=== PATIENT | male | born 1955 | race Caucasian/White ===

== ENCOUNTER 2025-02-25 16:22 | Inpatient (IN) ==
[2025-02-25] MEDS: ALBUT/IPRATROP 3MG/0.5MG NEB 3 ML VIAL ONE (16:39)
[2025-02-25 16:45] LABS: Base Excess VBG 40.4 mEq/L; HCO3 VBG 70 mmol/L; Oxygen Saturation VBG < 60.0 %; PCO2 VBG 99 mmHg (38-50); PO2 VBG 32 mmHg; pH VBG 7.46 (7.36-7.41)
[2025-02-25 16:47] LABS: Hemoglobin 9.4 g/dl (14.0-18.0); Mean Corpuscular Hemoglobin 22.3 pg (25.0-34.0); Mean Corpuscular Hgb Conc 27.6 g/dL (32.0-36.0); Mean Corpuscular Volume 80.6 fL (80.0-100.0); Mean Platelet Volume 10.3 fL (9.4-12.4); Nucleated RBC # (auto) 0.02 K/uL (0.00-0.12); Nucleated RBC % (auto) 0.1 %; Platelet Count 289 K/uL (130-400); RDW Coefficient of Variation 22.2 % (11.5-14.5); RDW Standard Deviation 64.3 fL (36.4-46.3); Red Blood Count 4.22 M/uL (4.70-6.10); White Blood Count 24.05 K/ul (4.8-10.8)
--- NOTE | 2025-02-25 16:51 | XRay Report ---
EXAM: Portable AP chest radiograph TECHNIQUE: AP portable radiograph of the chest was obtained. INDICATION: Shortness of breath Comparison: None FINDINGS: LINES and TUBES: None CARDIOVASCULAR: Cardiac silhouette is enlarged in size. LUNGS/PLEURA: No focal consolidation identified. Mild pulmonary vascular congestion and chronic interstitial lung changes. Hyperinflated lungs. Small pleural fluids may be present. Bibasilar atelectatic changes. No discernible pneumothorax. OSSEOUS/OTHER: No displaced acute osseous process identified. IMPRESSION: Mild congestive changes of the cardiovascular system superimposed on chronic interstitial lung changes. Electronically signed by James Marks 02-25-2025 4:51 PM
[2025-02-25] MEDS: RAPID SEQUENCE INDUCTION BAG ONE (16:54)
[2025-02-25] MEDS: KETAMINE HCL 10MG/ML SYR ONE (16:54)
[2025-02-25 17:27] LABS: Alanine Aminotransferase 19 U/L (7-52); Albumin Globulin Ratio 1.3 (0.9-2); Albumin Level 3.8 gm/dl (3.4-5.0); Alkaline Phosphatase 65 U/L (34-104); Aspartate Aminotransferase 25 U/L (13-39); BUN Creatinine Ratio 25.6 (10-20); Bilirubin,Total 0.7 mg/dl (0.2-1.0); Blood Urea Nitrogen 51 mg/dl (6-23); Calcium 9.9 mg/dl (8.6-10.3); Carbon Dioxide > 45 mmol/L (21-32); Chloride 67 mmol/L (98-107); Globulin 2.9 gm/dl (2.5-4.0); Glucose 67 mg/dl (70-99(Fasting)); Potassium 3.4 mmol/L (3.5-5.1); Sodium 133 mmol/L (136-145); Total Protein 6.7 gm/dl (6.0-8.3); Troponin I High Sensitivity 78.4 pg/ml (0-20)
[2025-02-25] MEDS: OPTIRAY 320 125ml IV ONE (17:48)
--- NOTE | 2025-02-25 17:51 | Emergency Department Note ---
Impression & Plan COPD exacerbation, Elevated troponin ED Provider Note NAME: ARAMIS MCGINNIS AGE: 69 SEX: M : 1955 ARRIVES VIA: Ambulance INFORMANT: Patient, ED PROVIDER(S): Gabrielal Rosario MD CHIEF COMPLAINT: Respiratory distress HPI: This is 69-year-old male with history of CHF, COPD, diabetes presenting for respiratory distress. Patient has an outpatient appointment today and was found to be hypoxic to 67% on room air. EMS was then alerted. States that he is a patient refused CPAP in around. Otherwise patient is alert, oriented and continues to decline CPAP/BiPAP currently. His oxygen saturation is around 98% on 15 L nonrebreather. Will transition to nasal cannula, 5 L. Patient declines any current chest pain. He states he does inhalers every 4 hours. Otherwise his legs have been chronically swollen. Reports no fevers, cough, congestion. ROS: See above HPI for pertinent positives & negatives. A total of 10 systems reviewed and were otherwise negative. PAST MEDICAL HISTORY: See Below PAST SURGICAL HISTORY: See Below FAMILY HISTORY: See Below SOCIAL HISTORY: See Below HOME MEDICATIONS: See Below ALLERGIES: See Below VITALS: See Below PHYSICAL EXAMINATION: General: Chronically unwell appearing, tachypneic Head: Normocephalic and atraumatic Eyes: Normal inspection, extraocular muscles intact Ear, nose, throat: Normal external exam Neck: Normal range of motion Respiratory: Diminished in the upper lobes with crackles at the bases bilaterally Cardiovascular: Regular rate/rhythm, no murmur GI: soft, nontender, no guarding or rebound Extremities: Chronic venous skin changes with 2+ pitting edema Neuro: The patient awake and alert, appropriately conversive, no focal deficits, symmetric faces Skin: Warm, dry, and intact MEDICAL DECISION MAKING: This is a 69-year-old male presenting for respiratory distress. Patient currently speaking in full sentences. Will continue on nasal cannula at this time switching from nonrebreather. Will give albuterol as patient has poor air movement at this time. - Chest Xray independently interpreted by me showing no pneumothorax, focal opacity, or pleural effusions. Does reveal signs of congestive changes. - Th blood work reveals leukocytosis 24.05, consider infection versus recent steroid use (was on prednisone last week). No signs of pneumonia on x-ray - Advised her as needed 7.4. VBG is 7.46/99. - Chloride 67 with a CO2 of over 45, creatinine 1.99. Troponin is elevated at 78.4. - Will do CTA to rule out PE due to elevated troponin and hypoxia. -No signs of PE, there is right-sided cardiac chamber enlargement due to pulmonary hypertension -Patient will be admitted for COPD exacerbation/pulmonary hypertension Differential diagnosis: COPD, PE, CHF, dissection Independent History obtained from: Diagnostics interpreted by me: ECG: ECG independently interpreted by me with normal sinus rhythm, rate of 94, right axis deviation, normal PA, normal QRS, normal QTc, no ST segment elevations consistent with STEMI criteria Cardiac Monitoring: An order was placed for continuous cardiac monitoring. The monitor shows a rate of 101 with sinus rhythm. Critical Care Note: I have personally spent 45 minutes of critical care time in the direct management of this patient. This includes bedside care, interpretation of diagnostic studies, and testing, discussion with consultants, patient, and family members, and other required patient management activities. This 45 minutes is in excess of all separately billable procedures. Past Med/Surg History Problem List (Updated 02/27/25 @ 01:34 by Gabriella Rosario MD) Elevated troponin (Acute) COPD exacerbation (Acute) Obstructive sleep apnea Chronic hypercapnic respiratory failure Left leg cellulitis Acute and chronic respiratory failure Chronic hypoxic respiratory failure CKD (chronic kidney disease) Type 2 diabetes mellitus with hyperglycemia, with long-term current use of insulin Hypertrophic toenail Arthritis of right hand Lower extremity edema Asthma COPD (chronic obstructive pulmonary disease) CHF (congestive heart failure) Surgical History S/P cholecystectomy Status post hernia repair S/P lumbar spinal fusion Status post amputation Family History (Updated 02/06/25 @ 09:01 by Adri Ratliff LPN) Father Myocardial infarction Grandfather (Paternal) Myocardial infarction Denies family history of Ovarian cancer Prostate cancer Breast cancer Colonic polyp Social History Smoking Status: Current every day smoker Tobacco Type: Cigarettes Age Started Using Tobacco: 5; Age Quit Using Tobacco: 69; packs per day: 1.0; Second Hand Exposure: Yes; Do You Dip or Chew Tobacco: No; Tobacco Cessation Education Requested by Patient: No Hx Alcohol Use: No Hx Substance Use: No Preferred Language: Hungarian Communication Ability: Effective Visual Impairment: No Limitations Hearing Ability: Hard of Hearing Production Lead Required: No Beliefs That Will Affect Care: None marital status: Current Living Situation: Spouse current occupational status: retired How many Children do You have: 3 Feels Safe at Home: Yes Safety Concerns: Feels Safe At This Time Childhood Exposure to Second-Hand Smoke: No Diet: regular caffeine: Yes during the past year weight has: remained stable Dental Care, Regularly: No Physical Activity Frequency: Does not Exercise Seatbelt Use: never Sunscreen Use: No Assistive Devices: Cane and Oxygen - Continuous Allergies Allergies Allergy/AdvReac Type Severity Reaction Status Date / Time tramadol Allergy Severe Hallucinati Verified 02/25/25 14:44 ng Home Meds Home Medications Medication Instructions Recorded Confirmed albuterol sulfate 90 mcg/actuation 2 puff inhalation .every 4 hours 02/06/25 02/25/25 aerosol inhaler PRN Shortness Of Breath Or Wheezing aspirin 81 mg tablet,delayed 81 mg PO DAILY 02/06/25 02/25/25 release (Adult Low Dose Aspirin) cholecalciferol (vitamin D3) 25 25 mcg PO DAILY 02/06/25 02/25/25 mcg (1,000 unit) capsule insulin glargine 100 unit/mL (3 30 unit subcut DAILY 02/06/25 02/25/25 mL) subcutaneous pen (Lantus Solostar U-100 Insulin) metformin 1,000 mg tablet 1,000 mg PO BID 02/06/25 02/25/25 metolazone 5 mg tablet 5 mg PO DAILY PRN Muscle Spasm 02/06/25 02/25/25 potassium chloride 20 mEq 20 meq PO DAILY 02/06/25 02/25/25 tablet,extended release rosuvastatin 20 mg tablet 20 mg PO DAILY 02/06/25 02/25/25 torsemide 20 mg tablet 40 mg PO DAILY 02/06/25 02/25/25 Previous Rx's Medication Instructions Recorded blood-glucose sensor (FreeStyle #2 ea 02/06/25 Sarthak 3 Plus Sensor device) blood-glucose,pharmaceutical sales specialist,cont #1 ea 02/06/25 (FreeStyle Sarthak 3 [place]) Portable Oxygen #1 ea 02/20/25 Results & Data (ED) Vital Signs Vital Signs - 24 hr 02/25/25 16:14 02/25/25 16:30 02/25/25 16:30 Temperature 36.9 C Temperature Source Oral Pulse Rate 95 H Pulse Rate [Apical] Pulse Rate from SpO2 Sensor Respiratory Rate 30 H Respiratory Effort / Characteristics Respiratory Depth Shallow Blood Pressure 109/64 126/65 126/65 Blood Pressure Mean 79 81 81 Pulse Oximetry 100 Oxygen Delivery Method Non-rebreather Oxygen Flow Rate 15 Sepsis Recent Fever Within 48 Hours No Sepsis New/Unexplained Change in Mental Status N/A Sepsis Action Taken by Nursing No Action Required Pulse Oximetry Post Tiitration 02/25/25 16:30 02/25/25 16:33 02/25/25 16:36 Temperature Temperature Source Pulse Rate 96 H 93 H Pulse Rate [Apical] Pulse Rate from SpO2 Sensor Respiratory Rate 29 H 29 H Respiratory Effort / Characteristics Respiratory Depth Blood Pressure Blood Pressure Mean Pulse Oximetry 99 99 100 Oxygen Delivery Method Non-rebreather Oxygen Flow Rate 15 Sepsis Recent Fever Within 48 Hours Sepsis New/Unexplained Change in Mental Status Sepsis Action Taken by Nursing Pulse Oximetry Post Tiitration 02/25/25 16:36 02/25/25 16:38 02/25/25 16:38 Temperature Temperature Source Pulse Rate Pulse Rate [Apical] 94 H Pulse Rate from SpO2 Sensor Respiratory Rate 22 Respiratory Effort / Characteristics Spontaneous Respiratory Depth Blood Pressure 118/61 Blood Pressure Mean 87 Pulse Oximetry 100 Oxygen Delivery Method Nasal Cannula Nasal Cannula Oxygen Flow Rate 5 5 Sepsis Recent Fever Within 48 Hours Sepsis New/Unexplained Change in Mental Status Sepsis Action Taken by Nursing Pulse Oximetry Post Tiitration 98 02/25/25 16:38 02/25/25 16:39 02/25/25 16:41 Temperature Temperature Source Pulse Rate 88 Pulse Rate [Apical] Pulse Rate from SpO2 Sensor 87 Respiratory Rate 27 H Respiratory Effort / Characteristics Respiratory Depth Blood Pressure 118/61 118/61 Blood Pressure Mean 87 80 Pulse Oximetry 99 100 Oxygen Delivery Method Aerosol Mask Nasal Cannula Nebulizer Oxygen Flow Rate 8 5 Sepsis Recent Fever Within 48 Hours Sepsis New/Unexplained Change in Mental Status Sepsis Action Taken by Nursing Pulse Oximetry Post Tiitration 02/25/25 17:04 02/25/25 17:15 02/25/25 17:51 Temperature Temperature Source Pulse Rate 93 H 89 68 Pulse Rate [Apical] Pulse Rate from SpO2 Sensor 92 H Respiratory Rate 21 22 Respiratory Effort / Characteristics Respiratory Depth Blood Pressure 113/56 L 112/60 Blood Pressure Mean 75 77 Pulse Oximetry 99 92 Oxygen Delivery Method Aerosol Mask Nasal Cannula Oxygen Flow Rate 8 5 Sepsis Recent Fever Within 48 Hours Sepsis New/Unexplained Change in Mental Status Sepsis Action Taken by Nursing Pulse Oximetry Post Tiitration 02/25/25 18:00 02/25/25 18:30 Temperature Temperature Source Pulse Rate 104 H 90 Pulse Rate [Apical] Pulse Rate from SpO2 Sensor 94 H 78 Respiratory Rate 21 24 Respiratory Effort / Characteristics Respiratory Depth Blood Pressure 96/48 L 96/65 L Blood Pressure Mean 64 75 Pulse Oximetry 90 94 Oxygen Delivery Method Nasal Cannula Nasal Cannula Oxygen Flow Rate 5 5 Sepsis Recent Fever Within 48 Hours Sepsis New/Unexplained Change in Mental Status Sepsis Action Taken by Nursing Pulse Oximetry Post Tiitration Laboratory Data 02/26/25 06:15 02/26/25 06:15 Lab Results 02/25/25 02/25/25 Range/Units 16:32 16:38 WBC 24.05 H (4.8-10.8) K/ul RBC 4.22 L (4.70-6.10) M/uL Hgb 9.4 L (14.0-18.0) g/dl POC Hgb 11.9 L (14.0-18.0) g/dl Hct 34.0 L (42.0-52.0) % POC Hct 35 L (42-52) % MCV 80.6 (80.0-100.0) fL MCH 22.3 L (25.0-34.0) pg MCHC 27.6 L (32.0-36.0) g/dL RDW Std Deviation 64.3 H (36.4-46.3) fL RDW Coeff of Randall 22.2 H (11.5-14.5) % Plt Count 289 (130-400) K/uL MPV 10.3 (9.4-12.4) fL Immature Gran % (Auto) 0.7 % Neut % (Auto) 85.4 % Lymph % (Auto) 3.1 % Clare % (Auto) 10.6 % Eos % (Auto) 0.0 % Baso % (Auto) 0.2 % Neut # (Auto) 20.55 H (1.40-6.50) K/uL Lymph # (Auto) 0.74 L (1.20-3.40) K/uL Clare # (Auto) 2.55 H (0.11-0.59) K/uL Eos # (Auto) 0.00 (0.00-0.50) K/uL Baso # (Auto) 0.04 (0.00-0.20) K/uL Immature Gran # (Auto) 0.17 (0.01-0.20) K/uL Absolute Nucleated RBC 0.02 (0.00-0.12) K/uL Nucleated RBC % (auto) 0.1 % Polychromasia 1+ Anisocytosis Present Stomatocytes 2+ VBG pH 7.46 H (7.36-7.41) VBG pCO2 99 H (38-50) mmHg VBG pO2 32 mmHg VBG HCO3 70 mmol/L VBG O2 Saturation < 60.0 % VBG Base Excess 40.4 mEq/L POC Sodium 127 L (135-144) mmol/L Sodium 133 L (136-145) mmol/L POC Potassium 3.1 L (3.3-5.0) mmol/L Potassium 3.4 L (3.5-5.1) mmol/L POC Chloride < 65 L (101-112) mmol/L Chloride 67 L (98-107) mmol/L Carbon Dioxide > 45 H* (21-32) mmol/L POC Total CO2 > 50 H* (24-31) mmol/L Anion Gap TNP POC Anion Gap TNP POC BUN 55 H (7-18) mg/dl BUN 51 H (6-23) mg/dl Creatinine 1.99 H (0.6-1.4) mg/dl POC Creatinine 2.2 H (0.6-1.3) mg/dl Est Cr Clr Drug Dosing 36.0 ml/min eGFR 35.46 BUN/Creatinine Ratio 25.6 H (10-20) Glucose 67 L (70-99(Fasting)) mg/dl POC Glucose (other) 68 L* (70-99) mg/dl Lactate 1.4 (0.4-2.0) mmol/L Calcium 9.9 (8.6-10.3) mg/dl POC Ioniz Calcium Maurice 1.06 L (1.12-1.32) mmol/l Total Bilirubin 0.7 (0.2-1.0) mg/dl AST 25 (13-39) U/L ALT 19 (7-52) U/L Alkaline Phosphatase 65 (34-104) U/L Troponin I High Sens 78.4 H* (0-20) pg/ml B-Natriuretic Peptide 173 H (0-100) pg/ml Total Protein 6.7 (6.0-8.3) gm/dl Albumin 3.8 (3.4-5.0) gm/dl Globulin 2.9 (2.5-4.0) gm/dl Albumin/Globulin Ratio 1.3 (0.9-2) Procalcitonin 2.19 H (0-0.5) ng/ml Administered Medications Acetaminophen (Acetaminophen 325 Mg Tab) 650 mg PO Q4H PRN PRN Reason: Pain or Fever Stop: 03/27/25 18:33 Last Admin: 02/26/25 20:15 Dose: 650 mg Documented By: RONALDO Aspirin (Aspirin 81 Mg Ectab) 81 mg PO DAILY [facility] Stop: 03/28/25 08:59 Last Admin: 02/26/25 08:01 Dose: 81 mg Documented By: JONATHAN Fluticasone/Vilanterol (Fluticasone/Vilanterol 100/25mcg 14 Puffs/Inhaler) 1 puffs INH DAILY [facility] Stop: 03/28/25 08:59 Last Admin: 02/26/25 08:00 Dose: 1 puffs Documented By: JONATHAN Heparin Sodium (Porcine) (Heparin Sod 5,000 Unit/0.5 Ml Vial) 5,000 units SQ Q12 [facility] Stop: 03/27/25 21:05 Last Admin: 02/26/25 20:15 Dose: 5,000 units Documented By: Admin: 02/26/25 08:00 Dose: 5,000 units Documented By: Admin: 02/25/25 22:09 Dose: 5,000 units Documented By: CATHERINE Ceftriaxone Sodium (Rocephin) 2,000 mg in 50 mls @ 100 mls/hr IV Q24H [facility] Stop: 03/04/25 20:59 Last Infusion: 02/26/25 20:49 Dose: Infused Documented By: Admin: 02/26/25 20:16 Dose: 100 mls/hr Documented By: Infusion: 02/25/25 22:38 Dose: Infused Documented By: Admin: 02/25/25 22:09 Dose: 100 mls/hr Documented By: CATHERINE Insulin Aspart (Insulin Aspart Per Unit Charge) 0 units SC ACHS [facility] Stop: 03/27/25 21:05 Last Admin: 02/26/25 20:17 Dose: 8 units Documented By: RONALDO Co-signed By: KENN Admin: 02/26/25 16:57 Dose: 10 units Documented By: JONATHAN Co-signed By: PETER Admin: 02/26/25 12:20 Dose: 13 units Documented By: JONATHAN Co-signed By: YVETTE Admin: 02/26/25 07:59 Dose: 9 units Documented By: JONATHAN Co-signed By: YVETTE Admin: 02/25/25 21:49 Dose: Not Given Documented By: CATHERINE Insulin Glargine (Lantus Per Unit Charge) 30 units SC DAILY [facility] Stop: 03/28/25 08:59 Last Admin: 02/26/25 08:03 Dose: 30 units Documented By: JONATHAN Co-signed By: YVETTE Metolazone (Metolazone 5 Mg Tablet) 5 mg PO 0830 [facility] Stop: 03/28/25 08:29 Last Admin: 02/26/25 09:33 Dose: 5 mg Documented By: JONATHAN Potassium Chloride (Potassium Chloride Crtab 20 Meq Tabcr) 40 meq PO QAM [facility] Stop: 03/28/25 13:54 Last Admin: 02/26/25 13:57 Dose: 40 meq Documented By: JONATHAN Rosuvastatin Calcium (Rosuvastatin Calcium 20 Mg Tab) 20 mg PO DAILY [facility] Stop: 03/28/25 08:59 Last Admin: 02/26/25 08:01 Dose: 20 mg Documented By: JONATHAN Umeclidinium [place] (Umeclidinium [place] 62.5mcg/Blister 7 Puffs/Inhaler) 1 puffs INH DAILY [facility] Stop: 03/28/25 14:44 Last Admin: 02/26/25 15:18 Dose: 1 puffs Documented By: JONATHAN Vitamin D (Cholecalciferol 25 Mcg (1000 Units) Tab) 25 mcg PO DAILY [facility] Stop: 03/28/25 08:59 Last Admin: 02/26/25 08:01 Dose: 25 mcg Documented By: JONATHAN Discontinued Medications Albuterol (Albut/Ipratrop 3mg/0.5mg Neb 3 Ml Vial) Confirm Administered Dose 12 ml .ROUTE .STK-MED ONE Stop: 02/25/25 16:32 Last Admin: 02/25/25 16:39 Dose: 12 ml Documented By: VAL Albuterol (Albuterol 0.5% Neb Soln 2.5 Mg/0.5 Ml Vial) 2.5 mg NEB NOW STA; Protocol Stop: 02/25/25 18:07 Last Admin: 02/25/25 18:17 Dose: 2.5 mg Documented By: TDDeejay Albuterol (Albut/Ipratrop 3mg/0.5mg Neb 3 Ml Vial) 3 ml NEB Q6R [facility]KE; Protocol Stop: 03/27/25 18:59 Last Admin: 02/26/25 12:59 Dose: 3 ml Documented By: Admin: 02/26/25 07:24 Dose: 3 ml Documented By: Admin: 02/25/25 23:12 Dose: 3 ml Documented By: Admin: 02/25/25 20:36 Dose: Not Given Documented By: TMP Azithromycin (Azithromycin 250 Mg Tab) 500 mg PO QAM [facility] Stop: 02/28/25 09:01 Last Admin: 02/26/25 09:33 Dose: 500 mg Documented By: JONATHAN Doxycycline Hyclate (Doxycycline Hyclate 100 Mg Cap) 100 mg PO BID [facility] Stop: 03/02/25 20:59 Last Admin: 02/26/25 08:01 Dose: 100 mg Documented By: Admin: 02/25/25 22:10 Dose: 100 mg Documented By: CATHERINE Furosemide (Furosemide 40 Mg/4 Ml Vial) 40 mg IV BID17 [facility] Stop: 02/26/25 23:59 Last Admin: 02/26/25 17:22 Dose: 40 mg Documented By: Admin: 02/26/25 09:34 Dose: 40 mg Documented By: JONATHAN Methylprednisolone 40 mg/ (Syringe) 0.64 mls @ 1.5 mls/min IV TID [facility] Stop: 03/27/25 20:59 Last Admin: 02/26/25 13:40 Dose: 1.5 mls/min Documented By: Admin: 02/26/25 08:00 Dose: 1.5 mls/min Documented By: Admin: 02/25/25 22:12 Dose: 1.5 mls/min Documented By: CATHERINE Ioversol (Optiray 320 125ml) 118 ml IV ONCE ONE Stop: 02/25/25 17:48 Last Admin: 02/25/25 17:48 Dose: 118 ml Documented By: NICOL Ketamine HCl (Ketamine Hcl 10mg/Ml Syr) Confirm Administered Dose 100 mg .ROUTE .STK-MED ONE Stop: 02/25/25 16:21 Last Admin: 02/25/25 16:54 Dose: Not Given Documented By: ML Methylprednisolone (Methylprednisolone 125 Mg/2 Ml Vial) 125 mg IV NOW STA Stop: 02/25/25 18:07 Last Admin: 02/25/25 18:17 Dose: 125 mg Documented By: TDM Miscellaneous (Rapid Sequence Induction Bag) Confirm Administered Dose 1 each N/A .STK-MED ONE Stop: 02/25/25 16:21 Last Admin: 02/25/25 16:54 Dose: Not Given Documented By: ML Potassium Chloride (Potassium Chloride Crtab 20 Meq Tabcr) 20 meq PO NOW STA Stop: 02/25/25 18:46 Last Admin: 02/25/25 19:34 Dose: 20 meq Documented By: CARROL Imaging Data Radiologist's Impression: Chest X-Ray 02/25/25 16:31 EXAM: Portable AP chest radiograph TECHNIQUE: AP portable radiograph of the chest was obtained. INDICATION: Shortness of breath Comparison: None FINDINGS: LINES and TUBES: None CARDIOVASCULAR: Cardiac silhouette is enlarged in size. LUNGS/PLEURA: No focal consolidation identified. Mild pulmonary vascular congestion and chronic interstitial lung changes. Hyperinflated lungs. Small pleural fluids may be present. Bibasilar atelectatic changes. No discernible pneumothorax. OSSEOUS/OTHER: No displaced acute osseous process identified. IMPRESSION: Mild congestive changes of the cardiovascular system superimposed on chronic interstitial lung changes. Electronically signed by James Marks 02-25-2025 4:51 PM Chest CTA 02/25/25 17:31 CT pulmonary angiogram with IV contrast History: Chest pain COMPARISON: None TECHNIQUE: CT angiography of the chest was performed without IV contrast followed by IV contrast, including 3D post processing CTA image reconstruction. Dose reduction techniques were achieved by using automatic exposure control and/or adjustment of mA and/or kV according to patient size and/or use of iterative reconstruction technique. FINDINGS: Diagnostic quality: Adequate There is no evidence for pulmonary embolism. The heart is enlarged, especially the right atrium and right ventricle. The pulmonary artery is enlarged suggesting pulmonary hypertension. Heavy coronary calcifications. There is no pericardial effusion. There are no abnormally enlarged hilar or mediastinal lymph nodes. The central tracheobronchial tree is clear. Mild emphysema. There is no pleural effusion. Mild confluent bibasilar peripheral atelectasis. Mild diffuse bronchial wall thickening suggestive of bronchitis. Limited visualized upper abdomen. No destructive osseous changes are seen. IMPRESSION: No evidence for pulmonary embolism. Emphysema and findings of bronchitis. Enlarged right-sided cardiac chambers and pulmonary artery due to pulmonary hypertension. Electronically signed by Yuri Henderson 02-25-2025 6:08 PM Discharge Plan Visit Data Chief Complaint: Respiratory Distress ED Provider: Gabirella Rosario Discharge Problem: COPD exacerbation, Elevated troponin Patient Disposition: Admitted As Inpatient Condition: Fair Discharge Instructions Interventions: ED Discharge Assessment Last Done: 02/25/25 19:51
--- NOTE | 2025-02-25 18:08 | CT Scan Report ---
CT pulmonary angiogram with IV contrast History: Chest pain COMPARISON: None TECHNIQUE: CT angiography of the chest was performed without IV contrast followed by IV contrast, including 3D post processing CTA image reconstruction. Dose reduction techniques were achieved by using automatic exposure control and/or adjustment of mA and/or kV according to patient size and/or use of iterative reconstruction technique. FINDINGS: Diagnostic quality: Adequate There is no evidence for pulmonary embolism. The heart is enlarged, especially the right atrium and right ventricle. The pulmonary artery is enlarged suggesting pulmonary hypertension. Heavy coronary calcifications. There is no pericardial effusion. There are no abnormally enlarged hilar or mediastinal lymph nodes. The central tracheobronchial tree is clear. Mild emphysema. There is no pleural effusion. Mild confluent bibasilar peripheral atelectasis. Mild diffuse bronchial wall thickening suggestive of bronchitis. Limited visualized upper abdomen. No destructive osseous changes are seen. IMPRESSION: No evidence for pulmonary embolism. Emphysema and findings of bronchitis. Enlarged right-sided cardiac chambers and pulmonary artery due to pulmonary hypertension. Electronically signed by Yuri Henderson 02-25-2025 6:08 PM
[2025-02-25 18:14] LABS: Anisocytosis Present; Basophils # (auto) 0.04 K/uL (0.00-0.20); Basophils % (auto) 0.2 %; Immature Granulocytes # (auto) 0.17 K/uL (0.01-0.20); Immature Granulocytes % (auto) 0.7 %; Lymphocytes # (auto) 0.74 K/uL (1.20-3.40); Lymphocytes % (auto) 3.1 %; Monocytes # (auto) 2.55 K/uL (0.11-0.59); Monocytes % (auto) 10.6 %; Neutrophils # (auto) 20.55 K/uL (1.40-6.50); Neutrophils % (auto) 85.4 %; Polychromasia 1+; Stomatocytes 2+
[2025-02-25] MEDS: ALBUTEROL 0.5% NEB SOLN 2.5 MG/0.5 ML VIAL NEB STA (18:17)
[2025-02-25] MEDS: methylPREDNISolone 125 MG/2 ML VIAL IV STA (18:17)
[2025-02-25] MEDS ORDERED: ONDANSETRON INJ 2 MG/ML 2 ML VIAL IV PRN (18:34)
[2025-02-25] MEDS ORDERED: POLYETHYLENE (MIRALAX) 17 GM PACK PO PRN (18:34)
--- NOTE | 2025-02-25 18:35 | History & Physical Report ---
Date of Service February 25, 2025 Assessment & Plan (1) Acute and chronic respiratory failure: (2) COPD (chronic obstructive pulmonary disease): (3) Asthma: (4) CHF (congestive heart failure): (5) Type 2 diabetes mellitus with hyperglycemia, with long-term current use of insulin: (6) Left leg cellulitis: Plan This is a 69-year-old gentleman with past medical history of asthma, COPD, CHF, type 2 diabetes who presented to the emergency department on 02/21/2025 referred by his PCP. While in the ED, he did have a WBC of 24.05, hemoglobin 9.4. His potassium was mildly low at 3.4, CO2 elevated at greater than 45, creatinine 1.99/BUN 51. Lactate WNL 1.4. Troponin elevated at 78.4. BNP elevated at 173. Chest x-ray revealing mild congestive changes in the cardiovascular system superimposed on chronic interstitial lung changes. Chest CTA revealed no PE. Emphysema with bronchitis. Enlarged right-sided cardiac chamber pulm due to pulmonary hypertension. #Acute on chronic hypoxic respiratory failure/COPD Likely secondary to COPD exacerbation. BMP w/ CO2 > 45, creatinine 1.9/BUN 51 s/p 1hr long nebulizer & Solu-medrol in ED w/ improvement of symptoms. Solu-Medrol 40mg TID Duonebs q6h scheduled Doxycycline BID Trelegy too expensive for patient - start Pulmicort AM CBC, BMP #CHF on Torsemide/Metolazone outpatient. --> w/ recent changes to daily metolazone usage instead of prn Updated Echo pending, no prior available to review Troponin elevate at 78.4, repeat pending BNP elevated at 173, no prior available to review. EKG w/o ST segment elevation. Patient without chest pain --> troponin elevation likely demand secondary to hypoxia given hypotension hold diuresis until AM assessment. #LLE Cellulitis ordered Doppler to rule out DVT CBC w/ leukocytosis of 24.05, hgb 9.4 Doxycycline as above + Rocephin Procal pending #Type 2 Diabetes On Insulin glargine 30 units daily + Metformin outpatient Recent A1c 02/06/25 - 5.3% Continue glargine dosing, hold metformin and add sliding scale coverage. Pharmacy consulted to aide in glycemic management. #HLD -statin DVT prophylaxis: Heparin Code: full case was discussed w/ Dr. Navarro at time of admission. History of Present Illness Primary Care Provider: Erlin Leggett DO This is a 69-year-old gentleman with past medical history of asthma, COPD, CHF, type 2 diabetes who presented to the emergency department on 02/21/2025 referred by his PCP. Martin was seen and examined this evening. He went to his PCP office today for a follow-up visit and was found to have an oxygen of 63% at 5 L with a low blood pressure of 73/37. It was then recommended that he report to the ER for further evaluation. Martin reports that he has been having ongoing shortness of breath for a few weeks now. He states that he is compliant with his diuretic therapy for his CHF and also his inhalers at home. Unfortunately Trelegy was too expensive and this has stopped. He tells me he is using albuterol every 4 hours at home with minimal relief. He denies any coughing or wheezing. He has medical officer kim lower extremity edema although his left lower extremity was redder than usual. He denies any wounds. He denies any chest pain. Denied any nausea, vomiting, changes in bowel habits. Denies any urinary symptoms. While in the ED, he did have a WBC of 24.05, hemoglobin 9.4. His potassium was mildly low at 3.4, CO2 elevated at greater than 45, creatinine 1.99/BUN 51. Lactate WNL 1.4. Troponin elevated at 78.4. BNP elevated at 173. Chest x-ray revealing mild congestive changes in the cardiovascular system superimposed on chronic interstitial lung changes. Chest CTA revealed no PE. Emphysema with bronchitis. Enlarged right-sided cardiac chamber pulm due to pulmonary hypertension. Code discussion to take place with the patient he does confirm he is a full code at time of my encounter Allergies Allergy/AdvReac Type Severity Reaction Status Date / Time tramadol Allergy Severe Hallucinati Verified 02/25/25 14:44 ng Home Medications Medication Instructions Recorded Confirmed Type albuterol sulfate 90 mcg/actuation 2 puff inhalation .every 4 hours 02/06/25 02/25/25 History aerosol inhaler PRN Shortness Of Breath Or Wheezing aspirin 81 mg tablet,delayed 81 mg PO DAILY 02/06/25 02/25/25 History release (Adult Low Dose Aspirin) blood-glucose sensor (FreeStyle #2 ea 02/06/25 02/25/25 Rx Sarthak 3 Plus Sensor device) blood-glucose,stain remover,cont #1 ea 02/06/25 02/25/25 Rx (FreeStyle Sarthak 3 [place]) cholecalciferol (vitamin D3) 25 25 mcg PO DAILY 02/06/25 02/25/25 History mcg (1,000 unit) capsule insulin glargine 100 unit/mL (3 30 unit subcut DAILY 02/06/25 02/25/25 History mL) subcutaneous pen (Lantus Solostar U-100 Insulin) metformin 1,000 mg tablet 1,000 mg PO BID 02/06/25 02/25/25 History metolazone 5 mg tablet 5 mg PO DAILY PRN Muscle Spasm 02/06/25 02/25/25 History potassium chloride 20 mEq 20 meq PO DAILY 02/06/25 02/25/25 History tablet,extended release rosuvastatin 20 mg tablet 20 mg PO DAILY 02/06/25 02/25/25 History torsemide 20 mg tablet 40 mg PO DAILY 02/06/25 02/25/25 History Portable Oxygen #1 ea 02/20/25 02/25/25 Rx Past Med/Surg History Problem List (Updated 02/25/25 @ 18:53 by Lizbeth Mendoza PA-C) Left leg cellulitis Acute and chronic respiratory failure Chronic hypoxic respiratory failure CKD (chronic kidney disease) Type 2 diabetes mellitus with hyperglycemia, with long-term current use of insulin Hypertrophic toenail Arthritis of right hand Lower extremity edema Asthma COPD (chronic obstructive pulmonary disease) CHF (congestive heart failure) Surgical History S/P cholecystectomy Status post hernia repair S/P lumbar spinal fusion Status post amputation Family History (Updated 02/06/25 @ 09:01 by Adri Ratliff LPN) Father Myocardial infarction Grandfather (Paternal) Myocardial infarction Denies family history of Ovarian cancer Prostate cancer Breast cancer Colonic polyp Social History Smoking Status: Former smoker Tobacco Type: Cigarettes Age Started Using Tobacco: 5; Age Quit Using Tobacco: 69; packs per day: 1.0; Second Hand Exposure: Yes; Do You Dip or Chew Tobacco: No; Hx Alcohol Use: No Hx Substance Use: No Preferred Language: Hungarian Communication Ability: Effective Visual Impairment: No Limitations Hearing Ability: Hard of Hearing Cardiology Physician Required: No Beliefs That Will Affect Care: None marital status: Current Living Situation: Spouse current occupational status: retired How many Children do You have: 3 Feels Safe at Home: Yes Childhood Exposure to Second-Hand Smoke: No Diet: regular caffeine: Yes during the past year weight has: remained stable Dental Care, Regularly: No Physical Activity Frequency: Does not Exercise Seatbelt Use: never Sunscreen Use: No Assistive Devices: Cane, Denture - Upper, Denture - Lower, Glasses and Oxygen - Continuous Physical Exam Physical Exam: General: no acute distress; non-toxic appearing; well-nourished; cooperative HEENT: normocephalic, atraumatic; no scleral icterus; PERRLA w/ EOMs intact; vision and hearing grossly intact Neck: trachea midline Skin: warm, dry without signs of tenting; no cyanosis; no rashes, bruising, lesions, or erythema noted CV: chest wall NTP; RRR; S1/S2 normal; no murmurs/rubs/gallops; pulses intact and symmetric at radial, DP, and PT Lungs: 5L O2; wheezing throughout all lung ellis, lungs diminshed throughout all lung ellis ABD: Soft,+ abdominal hernia; +BS MSK: + LE edema in b/l. erythema w/ flaky skin on left lower extremity. no wound visualized. Neuro: A&Ox3; normal mood and affect; fluent speech; no focal deficits; sensation grossly intact in the LEs b/l Results & Data Results & Data Vital Signs (Past 12 Hours) Vital Signs Temp Pulse Pulse Resp BP Pulse Ox O2 Del Method 02/25/25 17:51 68 22 112/60 92 Nasal Cannula 02/25/25 17:15 89 21 113/56 L 99 Aerosol Mask 02/25/25 17:04 93 H 02/25/25 16:41 100 Nasal Cannula, Nebulizer 02/25/25 16:39 88 27 H 118/61 99 Aerosol Mask 02/25/25 16:38 118/61 02/25/25 16:38 118/61 02/25/25 16:38 94 H 22 100 Nasal Cannula 02/25/25 16:36 Nasal Cannula 02/25/25 16:36 100 Non-rebreather 02/25/25 16:33 93 H 29 H 99 02/25/25 16:30 96 H 29 H 99 02/25/25 16:30 126/65 02/25/25 16:30 126/65 02/25/25 16:14 36.9 C 95 H 30 H 109/64 100 Non-rebreather O2 Flow Rate 02/25/25 17:51 5 02/25/25 17:15 8 02/25/25 17:04 02/25/25 16:41 5 02/25/25 16:39 8 02/25/25 16:38 02/25/25 16:38 02/25/25 16:38 5 02/25/25 16:36 5 02/25/25 16:36 15 02/25/25 16:33 02/25/25 16:30 02/25/25 16:30 02/25/25 16:30 02/25/25 16:14 15 Supervising Physician Co-Signing Physician Notes Patient seen and examined, chart reviewed, case discussed with Lizbeth Mendoza and I agree with the assessment and plan as above except as otherwise noted Labs and images reviewed 69-year-old male who presented with hypertension, cough, hypoxia. CTA was with no evidence of PE or lobar findings. He has significant wheezing on exam following steroids. Elevated CO2. Following Solu-Medrol, nebs significantly improved, had improved air movement although had more pronounced wheezing on reassessment. Suspect acute COPD exacerbation. Blood pressure improved after steroids, may have some relief from insufficiency due to recent steroid use. Steroids continue 40 mg 3 times daily. Rocephin/doxycycline continued. Rocephin Due to suspected left lower extremity concurrent cellulitis, Doxy is continued for COPD exacerbation coverage. Breo continued. DuoNebs as needed. Show signs of lower extremity stasis although no significant pulmonary edema. Suspect predominant symptoms are due to COPD exacerbation. Will hold diuresis. LLE Is asymmetrically warm red and hot tenderness of left lower extremity. Assessment psychosis. Consistent with cellulitis. Treating with Rocephin. Doxy discontinued for COPD exacerbation. Dopplers to evaluate for DVT are pending. Agree with above PG Care Time/CCT Total # of Minutes Spent Total Time Spent with Patient: Total time spent is greater than 50% in coordination of care (as documented) at patient's floor/unit and/or counseling patient: Coding Level of Care Code 58772 INT INP/OBS CARE Diagnoses Acute and chronic respiratory failure J96.20 COPD (chronic obstructive pulmonary disease) J44.9 Asthma J45.909 CHF (congestive heart failure) I50.9 Type 2 diabetes mellitus with hyperglycemia, with long-term current use of insulin E11.65; Z79.4 Left leg cellulitis L03.116
[2025-02-25] MEDS: POTASSIUM CHLORIDE CRTAB 20 MEQ TABCR PO STA (19:34)
[2025-02-25] MEDS: ALBUT/IPRATROP 3MG/0.5MG NEB 3 ML VIAL NEB SCH (20:36)
--- NOTE | 2025-02-25 20:50 | Ultrasound Report ---
DVT ULTRASOUND BILATERAL LOWER EXTREMITY INDICATION: Pain TECHNIQUE: Grayscale and color Doppler evaluation of the BILATERAL femoral-popliteal venous system was performed. A duplex Doppler study was performed, consisting of integrated two-dimensional (2D) real-time imaging: Color flow Doppler and Doppler spectral analysis. COMPARISON: None FINDINGS: RIGHT common femoral, femoral and popliteal veins: Normal compressibility, color flow, respiratory variation. No intraluminal echogenic material. LEFT common femoral, femoral and popliteal veins: Normal compressibility, color flow, respiratory variation. No intraluminal echogenic material. IMPRESSION: No evidence of deep venous thrombus in bilateral femoral-popliteal venous systems. Electronically signed by James Marks 02-25-2025 8:50 PM
[2025-02-25] MEDS ORDERED: PHARMACY GLYCEMIC MGMT CONSULT PRN (21:06)
[2025-02-25] MEDS: INSULIN ASPART PER UNIT CHARGE SC SCH (21:49)
[2025-02-25] MEDS: cefTRIAXone SODIUM 2,000 MG/50 ML BAG IV SCH (22:09)
[2025-02-25] MEDS: HEPARIN SOD 5,000 UNIT/0.5 ML VIAL SQ SCH (22:09)
[2025-02-25] MEDS: DOXYCYCLINE HYCLATE 100 MG CAP PO SCH (22:10)
[2025-02-25] MEDS: methylPREDNISolone 40 MG in SYRINGE 0 ML IV SCH (22:12)
[2025-02-26 07:27] LABS: Hematocrit (blood only) 34.1 % (42.0-52.0); Hemoglobin 9.6 g/dl (14.0-18.0); Mean Corpuscular Hemoglobin 22.4 pg (25.0-34.0); Mean Corpuscular Hgb Conc 28.2 g/dL (32.0-36.0); Mean Corpuscular Volume 79.7 fL (80.0-100.0); Mean Platelet Volume 9.9 fL (9.4-12.4); Nucleated RBC # (auto) 0.02 K/uL (0.00-0.12); Nucleated RBC % (auto) 0.1 %; Platelet Count 283 K/uL (130-400); RDW Coefficient of Variation 22.1 % (11.5-14.5); RDW Standard Deviation 63.7 fL (36.4-46.3); Red Blood Count 4.28 M/uL (4.70-6.10); White Blood Count 13.99 K/ul (4.8-10.8)
[2025-02-26] MEDS: FLUTICASONE/VILANTEROL 100/25MCG 14 PUFFS/INHALER INH SCH (08:00)
[2025-02-26 08:01] LABS: BUN Creatinine Ratio 31.5 (10-20); Blood Urea Nitrogen 53 mg/dl (6-23); Calcium 9.7 mg/dl (8.6-10.3); Carbon Dioxide > 45 mmol/L (21-32); Chloride 65 mmol/L (98-107); Creatinine Clr Calc Pharmacy 43.1 ml/min; Glucose 154 mg/dl (70-99(Fasting)); Potassium 3.8 mmol/L (3.5-5.1); Sodium 131 mmol/L (136-145)
[2025-02-26] MEDS: ROSUVASTATIN CALCIUM 20 MG TAB PO SCH (08:01)
[2025-02-26] MEDS: ASPIRIN 81 MG ECTAB PO SCH (08:01)
[2025-02-26] MEDS: CHOLECALCIFEROL 25 MCG (1000 UNITS) TAB PO SCH (08:01)
[2025-02-26] MEDS: LANTUS PER UNIT CHARGE SC SCH (08:03)
[2025-02-26] MEDS ORDERED: methylPREDNISolone 10 mg/mL (For Ped Dose < 7mg) IV SCH (09:00)
[2025-02-26] MEDS ORDERED: FLUTICASONE FUROATE 100MCG 14 PUFFS/INHALER INH SCH (09:00)
[2025-02-26] MEDS: AZITHROMYCIN 250 MG TAB PO SCH (09:33)
[2025-02-26] MEDS: metOLazone 5 MG TABLET PO SCH (09:33)
[2025-02-26] MEDS: FUROSEMIDE 40 MG/4 ML VIAL IV SCH (09:34)
[2025-02-26 10:27] LABS: Appearance Urine Clear (Clear); Bacteria Urine Automated None Seen (None Seen); Bilirubin Urine Negative (Negative); Blood Urine 1+ (Negative); Color Urine Yellow; Epithelial Cell Urine Auto 0-2 /hpf (0-2); Glucose Urine UA Trace (Negative); Ketones Urine Negative (Negative); Leukocyte Esterase Urine Negative (Negative); Nitrite Urine Negative (Negative); Protein Urine 2+ (Negative); RBC Urine Automated 0-2 /hpf (0-2); Specific Gravity Urine 1.014 (1.000-1.030); Urobilinogen Urine Negative (Negative); WBC Urine Automated 0-5 /hpf (0-5); pH Urine 6.5 (4.5-7.5)
--- NOTE | 2025-02-26 10:48 | Pharmacy Report ---
Pharmacy Glycemic Short Note 2 - Date of Service February 26, 2025 - Glycemic Short BSG Results (Last 24 hours): 02/25/25 02/25/25 02/26/25 16:32 21:40 06:15 Glucose 67 L 154 H POC Glucose 103 H 02/26/25 07:36 Glucose POC Glucose 180 H OUTPATIENT ANTIDIABETIC REGIMEN: * Lantus 30 units SQ QAM * metformin 1000mg PO BID * HbA1c 5.3% (02/06/25) ASSESSMENT: * Martin is a 69 year old male admitted with COPD exacerbation and a history of type 2 diabetes mellitus. Pharmacy has been consulted to assist with glycemic management while inpatient. * Fasting BSG this AM elevated, likely due to IV methylprednisone (125mg x1 then 40mg HS) administration in ED without additional insulin coverage. Will initiate home dosage of Lantus and allow for up to a weight based stress of 3 at HS based on BSG. Methylprednisolone 40mg IV TID ordered ongoing at this time. * NovoLog at a weight based stress of 2, no insulin administered to evaluate regimen at this time. May need to be tightened with steroid administration. He is also receiving ceftriaxone, PO doxycycline, and PO azithromycin. Noted slight increase in serum creatinine from baseline, may have altered insulin pharmacokinetics. PLAN FOR INPATIENT GLYCEMIC CONTROL: * Hold outpatient diabetes medications * Basal insulin * Lantus 30 units SQ daily * Lantus 0-20 units SQ HS based on BSG (see eMAR for additional details) * Bolus insulin * NovoLog per scale ACHS or Q6hrs while NPO * Goal Range: Low 110 mg/dL - High 140 mg/dL * Correction Factor: 25 mg/dL/unit * Nutritional / Prandial insulin per carb ratio of 1 unit per 8 grams CHO consumed
--- NOTE | 2025-02-26 12:17 | XCELERA ---
[id number]
[2025-02-26 13:18] LABS: iSTAT Blood Urea Nitrogen 55 mg/dl (7-18); iSTAT Carbon Dioxide > 50 mmol/L (24-31); iSTAT Chloride < 65 mmol/L (101-112); iSTAT Creatinine 2.2 mg/dl (0.6-1.3); iSTAT Glucose 68 mg/dl (70-99); iSTAT Hematocrit 35 % (42-52); iSTAT Hemoglobin 11.9 g/dl (14.0-18.0); iSTAT Ionized Calcium 1.06 mmol/l (1.12-1.32); iSTAT Potassium 3.1 mmol/L (3.3-5.0); iSTAT Sodium 127 mmol/L (135-144)
[2025-02-26] MEDS: POTASSIUM CHLORIDE CRTAB 20 MEQ TABCR PO SCH (13:57)
--- NOTE | 2025-02-26 14:40 | Pulmonary Consultation ---
Date of Consultation February 26, 2025 Assessment & Plan (1) Chronic hypercapnic respiratory failure: (2) Chronic hypoxic respiratory failure: (3) COPD (chronic obstructive pulmonary disease): (4) Obstructive sleep apnea: Plan Impression: 69-year-old male with chronic hypercapnic and hypoxemic respiratory failure admitted with lower extremity edema and cellulitis. The majority of his pulmonary issues are chronic in nature. Recommendation: 1. COPD: Severity uncertain as PFTs were not available to review. The patient is hypercarbic. He is not bronchospastic currently and I do not see an indication for steroids so these will be discontinued. Continue Breo and add Incruse. Use DuoNebs as needed. I see no evidence of pneumonia on his CT scan so there is no indication for antibiotics from a respiratory standpoint. 2. Hypoxemic respiratory failure: Secondary to hypercarbia as well as potential VQ mismatch. Recommend targeting oxygen saturations around 85%. Given his concomitant hypercarbia, it may not be possible or recommended to achieve oxygen saturations higher than this. 3. Hypercapnic respiratory failure: Chronic in nature as elevated by increased bicarb. The patient likely needs some form of positive airway pressure at night. He will need his sleep study repeated. Hopefully we can find a mask that is comfortable for the patient. He is reluctant to consider positive airway pressure while in the hospital due to nasal issues he had previously in the hospital. He is open to considering this in the outpatient. 4. Tobacco abuse: The patient states he quit smoking 5 days ago. Complete abstinence from tobacco products was recommended. Management of the patient's other medical issues is deferred to the primary admitting service. Agree with diuretics and antibiotics for his cellulitis. Patient will require outpatient pulmonary follow-up with pulmonary function tests, polysomnography, and titration of positive airway pressure. Again these are chronic issues for the patient and none of these require inpatient evaluation. History of Present Illness Attending Physician: Adri Mckenzie MD History of Present Illness Asked by hospitalist to assist in evaluation management of this patient with multiple pulmonary issues. History is obtained from review electronic medical record as well as discussion with the patient and his at bedside. The patient is a 69-year-old male with an over [id number] history of tobacco abuse who quit smoking 5 days ago. He reportedly has a history of COPD and was followed by a cold mill supervisor in [place] and [place] previously. No records accompany the patient. He was reportedly prescribed Trelegy at some point in time however never filled the medication as it was cost prohibitive. He has not been placed on supplemental oxygen. He only uses albuterol. He was also diagnosed with sleep disordered breathing and has a CPAP machine at home but does not use it as he does not have an appropriate mask. He does not have copies of his prior sleep study for review. The patient was sent to the emergency room by his primary care provider with whom he was establishing care. He was hypoxemic and had a low blood pressure. He has been diagnosed with cellulitis and was admitted to the hospital and placed on oxygen. Pulmonary was consulted for additional management. The patient does not report cough or sputum production. No wheezing. Allergies Allergy/AdvReac Type Severity Reaction Status Date / Time tramadol Allergy Severe Hallucinati Verified 02/25/25 14:44 ng Home Medications Medication Instructions Recorded Confirmed Type albuterol sulfate 90 mcg/actuation 2 puff inhalation .every 4 hours 02/06/25 02/25/25 History aerosol inhaler PRN Shortness Of Breath Or Wheezing aspirin 81 mg tablet,delayed 81 mg PO DAILY 02/06/25 02/25/25 History release (Adult Low Dose Aspirin) blood-glucose sensor (FreeStyle #2 ea 02/06/25 02/25/25 Rx Sarthak 3 Plus Sensor device) blood-glucose,orthopedic dentist,cont #1 ea 02/06/25 02/25/25 Rx (FreeStyle Sarthak 3 [place]) cholecalciferol (vitamin D3) 25 25 mcg PO DAILY 02/06/25 02/25/25 History mcg (1,000 unit) capsule insulin glargine 100 unit/mL (3 30 unit subcut DAILY 02/06/25 02/25/25 History mL) subcutaneous pen (Lantus Solostar U-100 Insulin) metformin 1,000 mg tablet 1,000 mg PO BID 02/06/25 02/25/25 History metolazone 5 mg tablet 5 mg PO DAILY PRN Muscle Spasm 02/06/25 02/25/25 History potassium chloride 20 mEq 20 meq PO DAILY 02/06/25 02/25/25 History tablet,extended release rosuvastatin 20 mg tablet 20 mg PO DAILY 02/06/25 02/25/25 History torsemide 20 mg tablet 40 mg PO DAILY 02/06/25 02/25/25 History Portable Oxygen #1 ea 02/20/25 02/25/25 Rx Patient History Surgical History S/P cholecystectomy Status post hernia repair S/P lumbar spinal fusion Status post amputation Family History (Updated 02/06/25 @ 09:01 by Adri Ratliff LPN) Father Myocardial infarction Grandfather (Paternal) Myocardial infarction Denies family history of Ovarian cancer Prostate cancer Breast cancer Colonic polyp Social History Smoking Status: Current every day smoker Tobacco Type: Cigarettes Age Started Using Tobacco: 5; Age Quit Using Tobacco: 69; packs per day: 1.0; Second Hand Exposure: Yes; Do You Dip or Chew Tobacco: No; Tobacco Cessation Education Requested by Patient: No Hx Alcohol Use: No Hx Substance Use: No Preferred Language: Welsh Communication Ability: Effective Visual Impairment: No Limitations Hearing Ability: Hard of Hearing Account Classification Clerk Required: No Beliefs That Will Affect Care: None marital status: Current Living Situation: Spouse current occupational status: retired How many Children do You have: 3 Feels Safe at Home: Yes Safety Concerns: Feels Safe At This Time Childhood Exposure to Second-Hand Smoke: No Diet: regular caffeine: Yes during the past year weight has: remained stable Dental Care, Regularly: No Physical Activity Frequency: Does not Exercise Seatbelt Use: never Sunscreen Use: No Assistive Devices: Cane and Oxygen - Continuous Review of Systems 2 Review of Systems: Please refer to admission H&P. No additions or deletions Physical Exam 2 Constitutional: WD/WN, vitals as above Neck: trachea midline, no thyromegaly Respiratory: no respiratory distress, no labored breathing, no cough and not tachypneic Auscultation: + diminished lung sounds; no wheezes Cardiovascular: Rate/Rhythm: regular rate; not tachycardic Heart Sounds: n ormal S1 and normal S2; no murmur Extremities: + edema Gastrointestinal (Abdomen): normal bowel sounds, soft, nontender, no hepatosplenomegaly Musculoskeletal: Extremities: extremities normal to inspection Skin: no rashes, warm and dry Neurologic: Nonfocal exam Lymphatic: no cervical lymphadenopathy Results & Data Results & Data Vital Signs (Past 12 Hours) Vital Signs Temp Pulse Resp BP Pulse Ox O2 Del Method O2 Flow Rate 02/26/25 13:00 88 91 Nasal Cannula 15 02/26/25 11:53 36.5 C 83 20 116/73 91 High Flow Nasal Cannula 9 02/26/25 07:25 91 H 20 89 L Oxymask 15 02/26/25 07:12 36.5 C 86 26 H 120/67 84 L Oxymask 15 02/26/25 07:00 High Flow Nasal Cannula 9 02/26/25 03:37 36.7 C 85 20 110/69 87 L Oxymask 15 Laboratory Results 02/26/25 06:15 02/26/25 06:15 02/25/25 16:32 VBG pH 7.46 H VBG pCO2 99 H VBG pO2 32 VBG HCO3 70 VBG O2 Saturation < 60.0 VBG Base Excess 40.4 PG Care Time/CCT Total # of Minutes Spent Total Time Spent with Patient: Total time spent is greater than 50% in coordination of care (as documented) at patient's floor/unit and/or counseling patient: Coding Level of Care Code 80382 INT INP/OBS CARE 2/55MIN Diagnoses Chronic hypercapnic respiratory failure J96.12 Chronic hypoxic respiratory failure J96.11 COPD (chronic obstructive pulmonary disease) J44.9 Obstructive sleep apnea G47.33
[2025-02-26] MEDS: UMECLIDINIUM BROMIDE 62.5MCG/BLISTER 7 PUFFS/INHALER INH SCH (15:18)
--- NOTE | 2025-02-26 16:34 | Electrocardiogram Report ---
Test Reason : Blood Pressure : */* mmHG Vent. Rate : 94 BPM Atrial Rate : 94 BPM P-R Int : 176 ms QRS Dur : 80 ms QT Int : 370 ms P-R-T Axes : * 100 92 degrees QTcB Int : 462 ms Normal sinus rhythm Rightward axis Nonspecific ST and T wave abnormality Inferior ST elevation, cannot exclude hyperacute change Abnormal ECG No previous ECGs available Confirmed by Husam Greenwood ([id number]) on 02/26/2025 4:33:43 PM Referred By: Erlin Leggett Confirmed By: Husam Greenwood
[2025-02-26] MEDS ORDERED: ALBUT/IPRATROP 3MG/0.5MG NEB 3 ML VIAL NEB PRN (19:00)
[2025-02-26] MEDS: ACETAMINOPHEN 325 MG TAB PO PRN (20:15)
--- NOTE | 2025-02-26 20:48 | Hospitalist Progress Note ---
Date of Service February 26, 2025 Assessment & Plan (1) Acute and chronic respiratory failure: (2) COPD (chronic obstructive pulmonary disease): (3) Asthma: (4) CHF (congestive heart failure): (5) Type 2 diabetes mellitus with hyperglycemia, with long-term current use of insulin: (6) Left leg cellulitis: Plan This is a 69-year-old gentleman with past medical history of asthma, COPD, CHF, type 2 diabetes who presented to the emergency department on 02/21/2025 referred by his PCP. While in the ED, he did have a WBC of 24.05, hemoglobin 9.4. His potassium was mildly low at 3.4, CO2 elevated at greater than 45, creatinine 1.99/BUN 51. Lactate WNL 1.4. Troponin elevated at 78.4. BNP elevated at 173. Chest x-ray revealing mild congestive changes in the cardiovascular system superimposed on chronic interstitial lung changes. Chest CTA revealed no PE. Emphysema with bronchitis. Enlarged right-sided cardiac chamber pulm due to pulmonary hypertension. #Acute on chronic hypoxic respiratory failure / severe COPD / possible untreated CHICA -was treated with IV steroids, on IV antibiotics primarily for leg cellulitis -vbg with CO2 99 however, pH is normal consistent with chronic hypercarbia -on 5L continuous O2 at home, highest his concentrator will go Consulted pulmonary Dr. Fields - reviewed recs in note - he thinks the hypoxic and hypercarbic respiratory failure is chronic, stopped steroids -agree permissive hypoxia O2 sat goal 85% to avoid worsening hypercarbia -continue bronchodilators -cannot affort trilogy -has been unwilling/unable to tolerate NIV - unclear to me whether he is willing to entertain this at all. Explained at length to patient and his why this is necessaery to improve his breathing (vs oxygen alone) #chronic diastolic heart failure / myocardial demand ischemia -reviewed TTE and it is essentially normal. Normal EF and no rwma's -unable to determine whether component of acute CHF. BNP 173, not obviously volume overloaded on exam. No evidence of ACS -trial diuresis with lasix 40 IV x 2 doses today, continue metolazone. Resume usual lasix po in AM. -HS troponin has downtrended from 75-->35 -AM BMP, monitor weight and I/O #Possible sepsis present on admission due to LLE Cellulitis. Was hypotensive, hypoxic, leukocytosis, and encephalopathic -leukocytosis improved to 13K -LE duplex negative for DVT -continue elevation, ceftriaxone #Acute metabolic encephalopathy present on admission -his reports increased confusion for the past week or so. multifactorial and related to sepsis, hypotension, hypoxia, or hypercarbia -much improved possibly resolved today #Type 2 Diabetes with hypoglycemia and hyperglycemia On Insulin glargine 30 units daily + Metformin outpatient Recent A1c 02/06/25 - 5.3% Continue glargine dosing, hold metformin and sliding scale coverage. Pharmacy consulted to aid in glycemic management. Reviewed recs in note Steroids stopped #CKD stage 3 -monitor BMP daily -Cr improved from 2.2-->1.68 #Hyponatremia- moderate, present on admission -improved from 127-->131 -multiple possible causes including sepsis, heart failure, diuretics -monitor with diuresis, AM BMP -probably asymptomatic #Anemia -microcytic - check iron studies #HLD -statin DVT prophylaxis: Heparin Code: DNR/DNI per discussion with Dr. Fields and conformed by me during discussion with Arun and his at bedside PT/OT ordered Admission and Anticipated Discharge Date Admission Date: February 25, 2025 Subjective Not short of breath currently, LLE redness/swelling seems about the same His reports he has been confused and lethargic for the past week, much improved today and more or less back to his usual self Physical Exam Physical Exam: Last 24h vitals reviewed GEN: no acute distress, sitting in bed HEENT: pupils equal, sclerae anicteric, moist MM RESP: normal WOB, CTAB, distant, prolonged exp phase, not wheezing CV: reg no mrg. JVP not visible ABD: soft/nt/nd +BT : no adams SKIN: warm and dry, no generalized rashes EXT: bilateral LE edema, LLE with woody edema and erythema over anterior dewitt with few skin breaks, venous stasis dermatitis is worse on LLE than RLE NEURO: AOx person, place, and basic situation, vague historian seems to defer questions to his . Face symmetric, speech normal, moves 4 ext spontaneously and equally, no tremor/asterixis Results & Data Results & Data Vital Signs (Past 12 Hours) Vital Signs Temp Pulse Pulse Resp BP Pulse Ox Pulse Ox 02/26/25 19:49 36.4 C L 88 16 94/53 L 94 06/25/25 18:34 87 L 02/26/25 15:08 36.3 C L 92 H 22 110/54 L 87 L 02/26/25 14:00 79 02/26/25 13:20 85 02/26/25 13:00 88 91 02/26/25 11:53 36.5 C 83 20 116/73 91 O2 Del Method O2 Del Method O2 Flow Rate O2 Flow Rate 02/26/25 19:49 High Flow Nasal Cannula 15 02/26/25 18:34 High Flow Nasal Cannula 15 02/26/25 15:08 High Flow Nasal Cannula 15 02/26/25 14:00 02/26/25 13:20 02/26/25 13:00 Nasal Cannula 15 02/26/25 11:53 High Flow Nasal Cannula 9 PG Care Time/CCT Total # of Minutes Spent Total Time Spent with Patient: Total time spent is greater than 50% in coordination of care (as documented) at patient's floor/unit and/or counseling patient: Coding Level of Care Code 43214 SUB INP/OBS CARE 3/50MIN Diagnoses Acute and chronic respiratory failure J96.20 COPD (chronic obstructive pulmonary disease) J44.9 Asthma J45.909 CHF (congestive heart failure) I50.9 Type 2 diabetes mellitus with hyperglycemia, with long-term current use of insulin E11.65; Z79.4 Left leg cellulitis L03.116
[2025-02-26] MEDS ORDERED: LANTUS PER UNIT CHARGE SC SCH (21:00)
[2025-02-27 07:00] LABS: Base Excess VBG 42.7 mEq/L; HCO3 VBG 74 mmol/L; Oxygen Saturation VBG < 60.0 %; PCO2 VBG 84 mmHg (38-50); PO2 VBG < 20 mmHg; pH VBG 7.55 (7.36-7.41)
[2025-02-27 07:06] LABS: Hematocrit (blood only) 36.2 % (42.0-52.0); Hemoglobin 10.4 g/dl (14.0-18.0); Mean Corpuscular Hemoglobin 22.5 pg (25.0-34.0); Mean Corpuscular Hgb Conc 28.7 g/dL (32.0-36.0); Mean Corpuscular Volume 78.4 fL (80.0-100.0); Mean Platelet Volume 10.3 fL (9.4-12.4); Nucleated RBC # (auto) 0.02 K/uL (0.00-0.12); Nucleated RBC % (auto) 0.1 %; Platelet Count 316 K/uL (130-400); RDW Coefficient of Variation 21.9 % (11.5-14.5); RDW Standard Deviation 62.1 fL (36.4-46.3); Red Blood Count 4.62 M/uL (4.70-6.10); White Blood Count 22.89 K/ul (4.8-10.8)
[2025-02-27 07:27] LABS: Carbon Dioxide > 45 mmol/L (21-32)
[2025-02-27 07:28] LABS: BUN Creatinine Ratio 37.9 (10-20); Blood Urea Nitrogen 50 mg/dl (6-23); Calcium 9.7 mg/dl (8.6-10.3); Chloride 62 mmol/L (98-107); Creatinine Clr Calc Pharmacy 54.8 ml/min; Glucose 139 mg/dl (70-99(Fasting)); Iron 31 mcg/dl (35-175); Potassium 3.2 mmol/L (3.5-5.1); Sodium 131 mmol/L (136-145); Transferrin 458 mg/dl (200-360)
[2025-02-27 07:54] LABS: Ferritin 19.1 ng/ml (8-388)
[2025-02-27] MEDS: AZITHROMYCIN 250 MG TAB PO SCH (08:38)
[2025-02-27] MEDS: TORSEMIDE 20 MG TAB PO SCH (08:38)
--- NOTE | 2025-02-27 09:10 | Pulmonology Progress Note ---
Date of Service February 27, 2025 Assessment & Plan (1) Chronic hypercapnic respiratory failure: (2) Chronic hypoxic respiratory failure: (3) COPD (chronic obstructive pulmonary disease): (4) Obstructive sleep apnea: Plan Impression: 69-year-old male with chronic hypercapnic and hypoxemic respiratory failure admitted with lower extremity edema and cellulitis. The majority of his pulmonary issues are chronic in nature. Recommendation: 1. COPD: Severity uncertain as PFTs were not available to review. The patient is hypercarbic. He is not bronchospastic currently and I do not see an indication for steroids so these will be discontinued. Continue Breo and add Incruse. Use DuoNebs as needed. I see no evidence of pneumonia on his CT scan so there is no indication for antibiotics from a respiratory standpoint. Order budesonide neb 0.5mg bid and 20mcg formoterol nebulized bid. Patient has home nebulizer. Was prescribed Trelegy but was cost prohibitive and patient has not been taking. 2. Hypoxemic respiratory failure: Secondary to hypercarbia as well as potential VQ mismatch. Recommend targeting oxygen saturations around 85%. Given his concomitant hypercarbia, it may not be possible or recommended to achieve oxygen saturations higher than this. Patient on home oxygen therapy but may need evaluation for high flow concentrator on discharge. 3. Hypercapnic respiratory failure: Chronic in nature as elevated by increased bicarb. The patient likely needs some form of positive airway pressure at night. He will need his sleep study repeated. Hopefully we can find a mask that is comfortable for the patient. He is reluctant to consider positive airway pressure while in the hospital due to nasal issues he had previously in the hospital. He is open to considering this in the outpatient. 4. Tobacco abuse: The patient states he quit smoking 6 days ago. Complete abstinence from tobacco products was recommended. Management of the patient's other medical issues is deferred to the primary admitting service. Agree with diuretics and antibiotics for his cellulitis. Patient will require outpatient pulmonary follow-up with pulmonary function tests, polysomnography, and titration of positive airway pressure. Again these are chronic issues for the patient and none of these require inpatient evaluation. Admission and Anticipated Discharge Date Admission Date: February 25, 2025 Supervising Physician Co-Signing Physician Notes Patient seen and examined. EMR reviewed. Discussed with ELENO and agree with assessment plan as noted. The patient thinks the inhalers are offering him some benefit. He has a nebulizer at home. Would recommend investigating with case management as to whether or not nebulized therapies might be more cost effective solution for him. If so, Perforomist and budesonide can be tried. DuoNebs every 4 hours as needed can also be prescribed. He likely needs a high capacity oxygen concentrator at home. He will need an outpatient sleep study, pulmonary function test, and consideration for pulmonary rehab. It is unclear whether the patient has a desire to be compliant with any of these interventions moving forward. He states he is quite adamant about leaving the hospital today. The majority of his pulmonary issues are longstanding and chronic in nature. Subjective "I have no breathing issues this morning. You had two days and I am going home today." Patient remains on HFNC at 15L/min sating around 92%. Titrate to maintain SpO2 85% or above. From pulmonary perspective patient is okay to discharge with outpatient follow up. Review of Systems 2 Review of Systems: All systems reviewed & are unremarkable except as noted in HPI & below Physical Exam 2 Constitutional: WD/WN, vitals as above Neck: trachea midline, no thyromegaly Respiratory: no respiratory distress, no labored breathing, no cough and not tachypneic Auscultation: + diminished lung sounds; no wheezes Cardiovascular: Rate/Rhythm: regular rate; not tachycardic Heart Sounds: n ormal S1 and normal S2; no murmur Extremities: + edema Gastrointestinal (Abdomen): normal bowel sounds, soft, nontender, no hepatosplenomegaly Musculoskeletal: Extremities: extremities normal to inspection Skin: no rashes, warm and dry Neurologic: Nonfocal exam Lymphatic: no cervical lymphadenopathy Results & Data Results & Data Vital Signs (Past 12 Hours) Vital Signs Temp Pulse Pulse Resp BP Pulse Ox O2 Del Method 02/27/25 07:16 36.4 C L 89 21 122/65 94 High Flow Nasal Cannula 02/27/25 07:00 High Flow Nasal Cannula 02/27/25 05:45 91 H 02/27/25 03:36 36.5 C 79 17 107/73 92 High Flow Nasal Cannula 02/26/25 22:42 36.5 C 88 16 114/76 91 High Flow Nasal Cannula 02/26/25 21:48 84 O2 Flow Rate 02/27/25 07:16 15 02/27/25 07:00 15 02/27/25 05:45 02/27/25 03:36 15 02/26/25 22:42 15 02/26/25 21:48 Laboratory Results 02/27/25 06:43 02/27/25 06:43 Abnormal Lab Results 02/25/25 02/26/25 02/26/25 16:38 11:16 16:13 WBC RBC Hgb POC Hgb 11.9 L Hct POC Hct 35 L MCV MCH MCHC RDW Std Deviation RDW Coeff of Randall Plt Count MPV Absolute Nucleated RBC Nucleated RBC % (auto) VBG pH VBG pCO2 VBG pO2 VBG HCO3 VBG O2 Saturation VBG Base Excess POC Sodium 127 L Sodium POC Potassium 3.1 L Potassium POC Chloride < 65 L Chloride Carbon Dioxide POC Total CO2 > 50 H* Anion Gap POC Anion Gap TNP POC BUN 55 H BUN Creatinine POC Creatinine 2.2 H Est Cr Clr Drug Dosing eGFR BUN/Creatinine Ratio Glucose POC Glucose 268 H 196 H POC Glucose (other) 68 L* Calcium POC Ioniz Calcium Maurice 1.06 L Iron Transferrin Ferritin Vitamin B12 Urine Color Urine Appearance Urine pH Ur Specific [place] Urine Protein Urine Glucose (UA) Urine Ketones Urine Blood Urine Nitrite Urine Bilirubin Urine Urobilinogen Ur Leukocyte Esterase Urine WBC (Auto) Urine RBC (Auto) U Hyaline Cast (Auto) U Epithel Cells (Auto) Urine Bacteria (Auto) Urine Comment 02/26/25 02/26/25 02/26/25 20:10 22:39 Unknown WBC RBC Hgb POC Hgb Hct POC Hct MCV MCH MCHC RDW Std Deviation RDW Coeff of Randall Plt Count MPV Absolute Nucleated RBC Nucleated RBC % (auto) VBG pH VBG pCO2 VBG pO2 VBG HCO3 VBG O2 Saturation VBG Base Excess POC Sodium Sodium POC Potassium Potassium POC Chloride Chloride Carbon Dioxide POC Total CO2 Anion Gap POC Anion Gap POC BUN BUN Creatinine POC Creatinine Est Cr Clr Drug Dosing eGFR BUN/Creatinine Ratio Glucose POC Glucose 336 H* 189 H POC Glucose (other) Calcium POC Ioniz Calcium Maurice Iron Transferrin Ferritin Vitamin B12 Urine Color Yellow Urine Appearance Clear Urine pH 6.5 Ur Specific [place] 1.014 Urine Protein 2+ H Urine Glucose (UA) Trace H Urine Ketones Negative Urine Blood 1+ H Urine Nitrite Negative Urine Bilirubin Negative Urine Urobilinogen Negative Ur Leukocyte Esterase Negative Urine WBC (Auto) 0-5 Urine RBC (Auto) 0-2 U Hyaline Cast (Auto) 3-5 H U Epithel Cells (Auto) 0-2 Urine Bacteria (Auto) None Seen Urine Comment 02/27/25 02/27/25 06:43 07:15 WBC 22.89 H RBC 4.62 L Hgb 10.4 L POC Hgb Hct 36.2 L POC Hct MCV 78.4 L MCH 22.5 L MCHC 28.7 L RDW Std Deviation 62.1 H RDW Coeff of Randall 21.9 H Plt Count 316 MPV 10.3 Absolute Nucleated RBC 0.02 Nucleated RBC % (auto) 0.1 VBG pH 7.55 H VBG pCO2 84 H VBG pO2 < 20 VBG HCO3 74 VBG O2 Saturation < 60.0 VBG Base Excess 42.7 POC Sodium Sodium 131 L POC Potassium Potassium 3.2 L POC Chloride Chloride 62 L Carbon Dioxide > 45 H* POC Total CO2 Anion Gap TNP POC Anion Gap POC BUN BUN 50 H Creatinine 1.32 D POC Creatinine Est Cr Clr Drug Dosing 54.8 eGFR 58.03 BUN/Creatinine Ratio 37.9 H Glucose 139 H POC Glucose 185 H POC Glucose (other) Calcium 9.7 POC Ioniz Calcium Maurice Iron 31 L Transferrin 458 H Ferritin 19.1 Vitamin B12 584 Urine Color Urine Appearance Urine pH Ur Specific [place] Urine Protein Urine Glucose (UA) Urine Ketones Urine Blood Urine Nitrite Urine Bilirubin Urine Urobilinogen Ur Leukocyte Esterase Urine WBC (Auto) Urine RBC (Auto) U Hyaline Cast (Auto) U Epithel Cells (Auto) Urine Bacteria (Auto) Urine Comment Diagnostic Findings -No recent imaging. PG Care Time/CCT Total # of Minutes Spent Total Time Spent with Patient: Total time spent is greater than 50% in coordination of care (as documented) at patient's floor/unit and/or counseling patient: Coding Level of Care Code 80863 SUB INP/OBS CARE 235MIN Diagnoses Chronic hypercapnic respiratory failure J96.12 Chronic hypoxic respiratory failure J96.11 COPD (chronic obstructive pulmonary disease) J44.9 Obstructive sleep apnea G47.33
[2025-02-27 11:28] VITALS: BP 134/86; RESP 20; TEMP 97.3
[2025-02-27] MEDS: POTASSIUM CHLORIDE CRTAB 20 MEQ TABCR PO ONE (12:25)
--- NOTE | 2025-02-27 13:08 | Pharmacy Report ---
Pharmacy Glycemic Short Note 2 - Date of Service February 27, 2025 - Glycemic Short BSG Results (Last 24 hours): 02/25/25 02/26/25 02/26/25 16:38 16:13 20:10 Glucose POC Glucose 196 H 336 H* POC Glucose (other) 68 L* 02/26/25 02/27/25 02/27/25 22:39 06:43 07:15 Glucose 139 H POC Glucose 189 H 185 H POC Glucose (other) 02/27/25 11:14 Glucose POC Glucose 161 H POC Glucose (other) OUTPATIENT ANTIDIABETIC REGIMEN: * Lantus 30 units SQ QAM * metformin 1000mg PO BID * HbA1c 5.3% (02/06/25) ASSESSMENT: 02/27: * Martin received a total of 70 units of insulin yesterday (30 units were basal and 40 units were bolus). BSGs were all above goal yesterday which is likely due to the steroids he was receiving. * Fasting BSG was 185mg/dL this morning. Will continue Lantus without change for now but will continue to closely monitor as steroids have been discontinued. * Will loosen carb ratio also in anticipation of decreasing BSGs without the presence of steroids. 02/26: * Martin is a 69 year old male admitted with COPD exacerbation and a history of type 2 diabetes mellitus. Pharmacy has been consulted to assist with glycemic management while inpatient. * Fasting BSG this AM elevated, likely due to IV methylprednisone (125mg x1 then 40mg HS) administration in ED without additional insulin coverage. Will initiate home dosage of Lantus and allow for up to a weight based stress of 3 at HS based on BSG. Methylprednisolone 40mg IV TID ordered ongoing at this time. * NovoLog at a weight based stress of 2, no insulin administered to evaluate regimen at this time. May need to be tightened with steroid administration. He is also receiving ceftriaxone, PO doxycycline, and PO azithromycin. Noted slight increase in serum creatinine from baseline, may have altered insulin pharmacokinetics. PLAN FOR INPATIENT GLYCEMIC CONTROL: * Hold outpatient diabetes medications * Basal insulin * Lantus 30 units SQ daily * Bolus insulin * NovoLog per scale ACHS or Q6hrs while NPO * Goal Range: Low 110 mg/dL - High 140 mg/dL * Correction Factor: 25 mg/dL/unit * Nutritional / Prandial insulin per carb ratio of 1 unit per 8 grams CHO consumed
--- NOTE | 2025-02-27 13:22 | Discharge Summary ---
Discharge Summary Date of Service February 27, 2025 Principal Dx & Hospital Course #1 = Principal Diagnosis (1) Acute and chronic respiratory failure: (2) COPD (chronic obstructive pulmonary disease): (3) Asthma: (4) CHF (congestive heart failure): (5) Type 2 diabetes mellitus with hyperglycemia, with long-term current use of insulin: (6) Left leg cellulitis: Plan This is a 69-year-old gentleman with past medical history of asthma, COPD, CHF, type 2 diabetes who presented to the emergency department on 02/21/2025 referred by his PCP. While in the ED, he did have a WBC of 24.05, hemoglobin 9.4. His potassium was mildly low at 3.4, CO2 elevated at greater than 45, creatinine 1.99/BUN 51. Lactate WNL 1.4. Troponin elevated at 78.4. BNP elevated at 173. Chest x-ray revealing mild congestive changes in the cardiovascular system superimposed on chronic interstitial lung changes. Chest CTA revealed no PE. Emphysema with bronchitis. Enlarged right-sided cardiac chamber pulm due to pulmonary hypertension. #Acute on chronic hypoxic respiratory failure / severe COPD / possible untreated CHICA -initially was treated with IV steroids, on IV antibiotics primarily for leg cellulitis -vbg/abg with chronic hypercarbia -on 5L continuous O2 at home, highest his concentrator will go Consulted pulmonary Dr. Fields - reviewed recs in note - he thinks the hypoxic and hypercarbic respiratory failure is chronic, stopped steroids -agree permissive hypoxia O2 sat goal 85% to avoid worsening hypercarbia -continue bronchodilators -cannot afford trilogy - prescribed formoterol and budesonide nebs to see if more affordable -he declines noninvasive ventilation and is DNI, his is aware -wrote new oxygen Rx so that he can have a 10L oxygen concentrator at home. discussed with Arun and his not to over-oxygenate because of high CO2 #acute on chronic diastolic heart failure / myocardial demand ischemia -reviewed TTE and it is essentially normal. Normal EF and no rwma's -BNP not obviously volume overloaded on exam, however, hypoxia did improve after diuresis with IV lasix. only needed 2 doses. -HS troponin has downtrended from 75-->35 -continue usual metolazone (recently increased to daily with good weight loss) and lasix #Possible sepsis present on admission due to LLE Cellulitis. Was hypotensive, hypoxic, leukocytosis, and encephalopathic -leukocytosis improved to 13K then bounced back up to 22 probably steroids effect -LE duplex negative for DVT -treated with ceftriaxone, complete the course of oral antibiotics #Acute metabolic encephalopathy present on admission -his reports increased confusion for the past week or so. multifactorial and related to sepsis, hypotension, hypoxia, or hypercarbia as well as hypoglycemia prior to admission -resolved by discharge #Type 2 Diabetes with hypoglycemia and hyperglycemia On Insulin glargine 30 units daily + Metformin outpatient Recent A1c 02/06/25 - 5.3% -consider CGM as outpatient as he has had hypoglycemic (and hyperglycemic) events at home recently #CKD stage 3 -monitor BMP daily -Cr improved from 2.2-->1.68 #Hyponatremia- moderate, present on admission -improved from 127-->131 and stayed there after diuresis. Asymptomatic, could be chronic component and there are no old labs in our system -multiple possible causes including sepsis, heart failure, diuretics -monitor #Anemia -microcytic - check iron studies. Mildly low, resulted after discharge. B12 was 584 -follow up as outpatient to consider iron replacement #HLD -statin DNR/DNI per discussion with Dr. Fields and conformed by me during discussion with Arun and his at bedside Notes For Next Care Provider low normal iron stores with anemia - may benefit from oral iron referred to ambulatory case management arranged 10L oxygen concentrator with high flow tubing to have at home Medication Changes From Visit antibiotic rx for budesonide and formoterol nebs to see if more affordable Admission HPI Per Admitting Provider This is a 69-year-old gentleman with past medical history of asthma, COPD, CHF, type 2 diabetes who presented to the emergency department on 02/21/2025 referred by his PCP. Martin was seen and examined this evening. He went to his PCP office today for a follow-up visit and was found to have an oxygen of 63% at 5 L with a low blood pressure of 73/37. It was then recommended that he report to the ER for further evaluation. Martin reports that he has been having ongoing shortness of breath for a few weeks now. He states that he is compliant with his diuretic therapy for his CHF and also his inhalers at home. Unfortunately Trelegy was too expensive and this has stopped. He tells me he is using albuterol every 4 hours at home with minimal relief. He denies any coughing or wheezing. He has chronic lower extremity edema although his left lower extremity was redder than usual. He denies any wounds. He denies any chest pain. Denied any nausea, vomiting, changes in bowel habits. Denies any urinary symptoms. While in the ED, he did have a WBC of 24.05, hemoglobin 9.4. His potassium was mildly low at 3.4, CO2 elevated at greater than 45, creatinine 1.99/BUN 51. Lactate WNL 1.4. Troponin elevated at 78.4. BNP elevated at 173. Chest x-ray revealing mild congestive changes in the cardiovascular system superimposed on chronic interstitial lung changes. Chest CTA revealed no PE. Emphysema with bronchitis. Enlarged right-sided cardiac chamber pulm due to pulmonary hypertension. Code discussion to take place with the patient he does confirm he is a full code at time of my encounter Discharge Exam Last 24h vitals reviewed GEN: no acute distress, sitting in bed HEENT: pupils equal, sclerae anicteric, moist MM RESP: normal WOB, CTAB, distant, prolonged exp phase, not wheezing CV: reg no mrg. JVP not visible ABD: soft/nt/nd +BT : no adams SKIN: warm and dry, no generalized rashes EXT: bilateral LE edema, LLE with woody edema and erythema over anterior dewitt with few skin breaks still pretty red but some improvement, venous stasis dermatitis is worse on LLE than RLE NEURO: AOx person, place, and basic situation, vague historian seems to defer questions to his . Face symmetric, speech normal, moves 4 ext spontaneously and equally, no tremor/asterixis Discharge Plan Discharge Items Patient Disposition: Home - Home Health Services Reason For Visit: SOB Discharge Diagnosis: Left leg cellulitis, chronic hypoxic and hypercarbic respiratory failure, COPD Condition on Discharge: Fair Activity: Resume your previous activity Non-emergency contact: Primary Care Provider and [employer] Call non-emergency contact if: you have any medication questions and your symptoms worsen Follow-up/Referrals: Lo Garg PA-C [Physician Ship Rigger] - 03/05/25 3:00 pm (Lo Garg is a Physician Ship Rigger that works with Dr. Leggett. She will see you for your hospital follow up visit. Please arrive 15 min. before your scheduled appointment. Thank you!) Christiano Fields MD [Physician] - (Pulmonology will call to schedule follow up appointment.) Diet: Low Sodium (2gm) Addtl Attending Provider Instructions: Goal oxygen sat is 85-90% Don't push O2 over 89-90% or he will not breathe enough to get rid of carbon dioxide - this can cause sleepiness, confusion, tremor Complete the oral antibiotic for left leg skin infection Keep your legs elevated at rest and keep wearing compression stockings I made referral to ambulatory case management and home health Follow up with primary care and with pulmonary clinic Retesting for sleep apnea and pulmonary function testing is recommended - pulmonary can help set these things up Try to stop smoking ZAIDA. It is very dangerous to smoke while wearing oxygen or around oxygen equipment. It could cause severe hinkle or fire. It was a pleasure taking care of you in the hospital, Adri Mckenzie MD Pending Studies at Discharge: No Stand-Alone Forms: My [facility], Smoking Cessation Medications and DC Order Prescriptions: New metolazone 5 mg Tablet 5 mg PO DAILY Qty: 0 0RF formoterol fumarate [Perforomist] 20 mcg/2 mL Solution For Nebulization 20 mcg NEB BIDR Qty: 120 0RF Incruse Ellipta 62.5 mcg/actuation Blister With Device 1 inh inhalation DAILY Qty: 30 0RF budesonide 0.5 mg/2 mL Suspension For Nebulization 0.5 mg NEB BIDR Qty: 120 0RF cefuroxime axetil 500 mg tablet 500 mg PO BID 7 Days Qty: 14 0RF Continued (DME) Portable Oxygen Misc See Rx Instructions .Route Qty: 1 0RF Rx Instructions: 2 LPM O2 via nasal cannula insulin glargine [Lantus Solostar U-100 Insulin] 100 unit/mL (3 mL) insulin pen 30 unit subcut DAILY cholecalciferol (vitamin D3) 25 mcg (1,000 unit) capsule 25 mcg PO DAILY albuterol sulfate 90 mcg/actuation HFA aerosol inhaler 2 puff inhalation .every 4 hours PRN (Reason: Shortness Of Breath Or Wheezing) rosuvastatin 20 mg tablet 20 mg PO DAILY potassium chloride 20 mEq tablet extended release 20 meq PO DAILY metformin 1,000 mg tablet 1,000 mg PO BID aspirin [Adult Low Dose Aspirin] 81 mg tablet,delayed release (/EC) 81 mg PO DAILY torsemide 20 mg tablet 40 mg PO DAILY Discontinued metolazone 5 mg tablet 5 mg PO DAILY PRN (Reason: Muscle Spasm) No Action (DME) FreeStyle Sarthak 3 Plus Sensor Device See Rx Instructions .Route Qty: 2 3RF Rx Instructions: As directed (DME) FreeStyle Sarthak 3 [place] Misc See Rx Instructions .Route Qty: 1 0RF Rx Instructions: As directed Discharge Orders: Discharge Order (Routine); Ordered 02/27/25 Ordered By: Adri Mckenzie Admission Data Admit Date/Time: 02/25/25 18:34 Attending Provider: Adri Mckenzie Admit Provider: Theodore Navarro Primary Care Provider: Erlin Leggett Other Providers: Christiano Fields Other Interventions: Discharge Summary Assessment (RN) Last Done: 02/27/25 14:20 Hospital Stay Data Consultations 02/25/25 18:17 ED Decision to Admit Stat 02/26/25 11:44 Consult Pulmonology Routine Diagnostic Imagining Performed 02/25/25 17:31 CT for pulmonary embolism PE [CT angio chest PE protocol] Stat 02/25/25 18:42 US venous doppler LE BI Stat Pending Results Patient Have Any Pending Studies at Discharge: No Discharge Instructions Given to Patient (Per Discharging Provider) Goal oxygen sat is 85-90% Don't push O2 over 89-90% or he will not breathe enough to get rid of carbon dioxide - this can cause sleepiness, confusion, tremor Complete the oral antibiotic for left leg skin infection Keep your legs elevated at rest and keep wearing compression stockings I made referral to ambulatory case management and home health Follow up with primary care and with pulmonary clinic Retesting for sleep apnea and pulmonary function testing is recommended - pul monary can help set these things up Try to stop smoking ZAIDA. It is very dangerous to smoke while wearing oxygen or around oxygen equipment. It could cause severe hinkle or fire. It was a pleasure taking care of you in the hospital, Adri Mckenzie MD Total Time Total Time Spent Total Time Spent (In Minutes): I personally spent: 65 minutes today on clinical care activities including: reviewing chart notes and vital signs reviewing labs discussion with healthcare corporate account director examining and counseling the patient counseling the patient's family writing orders writing prescriptions, discharge instructions arranging new oxygen prescription, ambulatory follow-up documentation Coding Level of Care Code 34225 INP/OBS DISCH >30 MIN Diagnoses Acute and chronic respiratory failure J96.20 COPD (chronic obstructive pulmonary disease) J44.9 Asthma J45.909 CHF (congestive heart failure) I50.9 Type 2 diabetes mellitus with hyperglycemia, with long-term current use of insulin E11.65; Z79.4 Left leg cellulitis L03.116
--- NOTE | 2025-02-27 13:52 | Communication Note ---
Date of Service: February 27, 2025 1349 pm Oxygen saturation at rest on 5L pnc was 85%. at rest on 7L pnc was 85%. at rest on 10L pnc was 89-91% he is minimally ambulatory - transfers and walks short distance to bathroom with assistance Needs new Rx for continuous oxygen at 10L per nasal cannula, high flow cannula
[2025-02-27 14:23] VITALS: PULSE 74; O2SAT 97
[2025-02-27] MEDS ORDERED: FORMOTEROL 20 MCG/2 ML VIAL NEB SCH (19:00)
[2025-02-27] MEDS ORDERED: BUDESONIDE 0.5 MG/2 ML VIAL (PULMICORT) NEB SCH (19:00)
== END 2025-02-27 16:29 | disposition home health service (06) | DRG 871 ==
LOC: SUATTDRO → ED 16:22 → 2S 18:34 → SUATTDRO 18:34 → 2S 19:51
DX: Z79.82 Long term (current) use of aspirin; E87.1 Hypo-osmolality and hyponatremia; D50.9 Iron deficiency anemia, unspecified; G47.33 Obstructive sleep apnea (adult) (pediatric); N18.30 Chronic kidney disease, stage 3 unspecified; J44.0 Chronic obstructive pulmonary disease with (acute) lower respiratory infection; E11.649 Type 2 diabetes mellitus with hypoglycemia without coma; Z99.81 Dependence on supplemental oxygen; E78.5 Hyperlipidemia, unspecified; J43.9 Emphysema, unspecified; G93.41 Metabolic encephalopathy; I24.89 Other forms of acute ischemic heart disease; L03.116 Cellulitis of left lower limb; Z79.4 Long term (current) use of insulin; J40 Bronchitis, not specified as acute or chronic; E11.65 Type 2 diabetes mellitus with hyperglycemia; Z87.891 Personal history of nicotine dependence; Z79.84 Long term (current) use of oral hypoglycemic drugs; A41.9 Sepsis, unspecified organism; I27.20 Pulmonary hypertension, unspecified; Z88.5 Allergy status to narcotic agent; I50.22 Chronic systolic (congestive) heart failure; J96.12 Chronic respiratory failure with hypercapnia; Z79.899 Other long term (current) drug therapy; E11.22 Type 2 diabetes mellitus with diabetic chronic kidney disease; J96.21 Acute and chronic respiratory failure with hypoxia